=== PATIENT | male | born 2005 | race Caucasian/White ===

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

== ENCOUNTER 2025-03-20 13:11 | Emergency (ER) | payer OTHER, BC, SELFPAY ==
--- NOTE | ~2025-03-20 | XR_ITS ---
EXAMINATION: XR chest 2V DATE: 03/20/2025 14:12 INDICATION: Shortness of breath TECHNIQUE: PA and lateral views of the chest were obtained. COMPARISON: Chest radiograph dated 03/08/2013 and rib radiographs dated 11/20/2021 FINDINGS: The lungs are clear with no focal airspace opacities, pulmonary edema, pleural effusion or pneumothor ax. The cardiomediastinal silhouette is normal. Visualized bones and soft tissues are unremarkable. IMPRESSION: 1. No acute cardiopulmonary disease. Reviewed, dictated and finalized at location A.
[2025-03-20 13:25] VITALS: BP 152/95; PULSE 90; RESP 18; TEMP 36.6; O2SAT 96
--- NOTE | 2025-03-20 13:31 | ECG_ITS ---
Test Date: 2025-03-20 13:47:28 Measurements Intervals [place] Rate: 83 P: 3 CT: 161 QRS: 37 QRSD: 95 T: 16 QT: 348 QTc: 409 Interpretive Statements SINUS RHYTHM ST ELEVATION IN ANTEROLAT/HIGH LAT LEADS CONSISTENT WITH EARLY REPOLARIZATION BORDERLINE ECG No previous ECG available for comparison Electronically Signed On 03-20-2025 14:17:06 CDT by Vishal Cho D.O.
[2025-03-20 13:46] VITALS: BP 157/99; PULSE 88; RESP 18; O2SAT 99
[2025-03-20 13:46] LABS: Basophils Percent Auto 0.4 % (0.2-1.2); Eosinophils Percent Auto 0.3 % (0-4.4); Hemoglobin 17.2 g/dL (14.0-18.0); Immature Granulocyte Absolute 0.03 K/mm3 (0.00-0.031); Immature Granulocyte Percent A 0.3 % (0-0.5); Lymphocytes Absolute Auto 1.69 K/mm3 (0.9-3.2); Lymphocytes Percent Auto 18.9 % (18.3-44.2); Mean Corpuscular HGB Conc 35.1 g/dl (32-36); Mean Corpuscular Hemoglobin 28.5 pg (26-34); Mean Corpuscular Volume 81.3 fl (80-100); Mean Platelet Volume 8.7 fl (7.4-10.4); Monocytes Absolute Auto 0.7 K/mm3 (0.1-0.6); Monocytes Percent Auto 7.8 % (2.6-8.5); Neutrophils Absolute Auto 6.4 K/mm3 (1.3-6.7); Neutrophils Percent Auto 72.3 % (45.5-73.1); Platelet Count Result 339 k/mm3 (150-375); Red Blood Count 6.03 M/mm3 (4.6-6.20); Red Cell Distribution Width 12.2 % (11.5-14.5); White Blood Count 8.9 K/mm3 (4.5-10.0)
--- OUTSIDE RECORDS SUMMARY | 2025-03-20 13:46 | XMS_ITS | Clinical Summary ---
Author Organization [facility] Address [address] [place] [address] Care Team Providers Care Rf Engineer Name Role Phone Jose Paulino MD Unavailable [phone] Source Comments [facility],non-owned Affiliates and Associated Physician Practices is amultiple site organization consisting of ambulatory clinics and hospital sitesin [place] and [place]. This disclosure is being madepursuant to the Care Everywhere program and may not contain all information available regarding this patient. Last updated 18.[facility] Allergies No known active allergies Medications * Be aware that medications may not be up to date on this document. Always verify current medications with the patient. No known medications Active Problems Problem Noted Date Diagnosed Date Perineal pain in male 08/19/2020 Assessment & Plan (08/19/2020 2:58 PM JAVA CONSULTANT): On my exam he is focally tender in the right perineal area with mass or induration. I do not think he has an inguinal hernia. Seems relatively distant from the anus to be overly concerning for something like fistula in ano. No great explanation for pain and no voiding complaints. Offered the following options: 1. 2nd opinion with pediatric surgery 2. Physical therapy consult 3. Repeat scrotal and now perineal ultrasound 4. Observation or combination of above. They will think about options and contact the clinic. Social History Tobacco Use Types Packs/Day Years Used Date Smoking Tobacco: Every Day Smokeless Tobacco: Never Comments:smokes marijuana Alcohol Use Standard Drinks/Week Comments Yes 0 (1 standard drink = 0.6 oz pur e alcohol) once every 2 month Sex and Gender Information Value Date Recorded Sex Assigned at Not on file Legal Sex Male 5:45 AM JAVA CONSULTANT Gender Identity Not on file Sexual Orientation Not on file Last Filed Vital Signs Vital Sign Reading Time Taken Comments Blood Pressure - - Pulse - - Temperature - - Respiratory Rate - - Oxygen Saturation - - Inhaled Oxygen Concentration - - Weight 69.3 kg (152 lb 12.5 oz) 020 11:28 AM JAVA CONSULTANT Height 173.8 cm (5' 8.43) 08/19/2020 1 1:28 AM JAVA CONSULTANT Body Mass Index 22.94 08/19/2020 11:28 AM JAVA CONSULTANT Plan of Treatment Health Maintenance Due Date Last Done Comments HIV SCREENING 2018 HPV VACCINE (1 - Male 3-dose series) 2018 MENINGOCOCCAL (Group B) VACC INE SHARED DECISION-MAKING (1 of 2 - Standard) 2019 HEPATITIS C SCREENING 02/11/2021 DTAP/TDAP/TD VACCINES (1 - Tdap) 2022 HEPATITIS B VACCINE (1 of 3 - 19+ 3-dose series) 2022 COVID-19 VACCINE (1 - 2023-2 5 season) 2024 DEPRESSION SCREENING 10/04/2024 INFLUENZA VACCINE (Season Ended) 2025 ZOSTER VACCINE (1 of 2) 2053 HIB VACCINE Aged Out No longer eligi ble based on patient's age to complete this topic MENINGOCOCCAL GROUPS A/C/Y/W VACCINE Aged Out No longer eligible b ased on patient's age to complete this topic PNEUMOCOCCAL VACCINE Aged Out No long er eligible based on patient's age to [place] [address] [facility] Care Teams Rf Engineer Relationship Specialty Start Date End Date Jose Paulino MD [address] [place] [address] Pediatric Urology 08/19/20
[2025-03-20 13:55] LABS: Alanine Aminotransferase 19 U/L (6-50); Albumin Level 4.8 g/dL (3.5-5.1); Alkaline Phosphatase 136 U/L (38-126); Anion Gap 13 mmol/L (4-12); Aspartate Amino Transferase 28 U/L (17-59); Bilirubin,Total 0.9 mg/dL (0.2-1.3); Blood Urea Nitrogen 9 mg/dL (9-20); Calcium 9.5 mg/dL (8.4-10.2); Carbon Dioxide 20 mmol/L (22-30); Chloride 104 mmol/L (98-107); Estimated CRCL calculation 106 ml/min; Estimated Glomerular Filt Rate > 60; Glucose 120 mg/dL (65-110); Potassium 3.6 mmol/L (3.4-5.0); Sodium 137 mmol/L (137-145); Total Protein 7.9 g/dL (6.3-8.2)
[2025-03-20 14:23] LABS: Influenza A QL RT-PCR Negative (Negative); Influenza B QL RT-PCR Negative (Negative); RSV RNA, RT-PCR Negative (Negative); SARS-CoV-2 RNA PCR Negative (Negative)
[2025-03-20 14:45] VITALS: PULSE 97; RESP 15; O2SAT 95
--- OUTSIDE RECORDS SUMMARY | 2025-03-20 14:49 | XMS_ITS | Clinical Summary ---
Author Organization [facility] Address [address] [place] [address] Care Team Providers Care Baling Machine Tender Name Role Phone Jose Paulino MD Unavailable [phone] Source Comments [facility],non-owned Affiliates and Associated Physician Practices is amultiple site organization consisting of ambulatory clinics and hospital sitesin [place], [place], [place] and [place]. This disclosure is being madepursuant to the Care Everywhere program and may not contain all information available regarding this patient. Last updated 18.[facility] Allergies No known active allergies Medications * Be aware that medications may not be up to date on this document. Always verify current medications with the patient. No known medications Active Problems Problem Noted Date Diagnosed Date Perineal pain in male 08/19/2020 Assessment & Plan (08/19/2020 2:58 PM RESTAURANT EXPEDITOR): On my exam he is focally tender [...] on file Legal Sex Male 5:45 AM RESTAURANT EXPEDITOR Gender Identity Not on file Sexual Orientation Not on file Last Filed Vital Signs Vital Sign Reading Time Taken Comments Blood Pressure - - Pulse - - Temperature - - Respiratory Rate - - Oxygen Saturation - - Inhaled Oxygen Concentration - - Weight 69.3 kg (152 lb 12.5 oz) 020 11:28 AM RESTAURANT EXPEDITOR Height 173.8 cm (5' 8.43) 08/19/2020 1 1:28 AM RESTAURANT EXPEDITOR Body Mass Index 22.94 08/19/2020 11:28 AM RESTAURANT EXPEDITOR Plan of Treatment Health Maintenance Due Date [...] patient's age to complete [place] [address] [facility] Care Teams Baling Machine Tender Relationship Specialty Start Date End Date Jose Paulino MD [address] [place] [address] Pediatric Urology 08/19/20
--- NOTE | 2025-03-20 16:08 | ED_ITS ---
HPI - SOB/Dyspnea General Chief Complaint: Shortness of Breath/Dyspnea Stated Complaint: shortness of breath Time Seen by Provider: 03/20/25 13:24 Source: patient and family Mode of arrival: ambulatory Limitations: no limitations History of Present Illness HPI Narrative: 20-year-old with a history of asthma he is here with complaints of intermittent shortness of breath for past 1 week. He denies any cough. No history of chest pain. Heart however he states that it is pain in the left upper abdomen he denies any fever or chills. MD elicited complaint: shortness of breath Pertinent past history: asthma Timing: intermittent Exacerbating factors: nothing Relieving factors: nothing Known history of: asthma Associated symptoms: denies other symptoms Related Data Allergies Allergy/AdvReac Type Severity Reaction Status Date / Time No Known Allergies Allergy Verified 03/20/25 13:11 Review of Systems 2 Review of Systems: All systems reviewed & are unremarkable except as noted in HPI and below ROS unobtainable: Yes unobtainable due to endotracheal tube Constitutional: Constitutional: Reports no additional constitutional complaints Eyes: Eyes: Reports no additional eye complaints ENT: Reports system reviewed and no additional complaints, except as documented Cardiovascular: Cardiovascular: Reports no additional cardiovascular complaints Respiratory: Respiratory: Reports as per HPI Musculoskeletal: Musculoskeletal: Reports no additional musculoskeletal complaints [facility] Past Medical History Medical History Hernia Surgical History Surgical History No significant past surgical history Family History Family History Father Alive and well Mother Alive and well Grandparent Hypertension Social History Social History Smoking status: Current every day smoker Tobacco type: e-cigarettes/vaping Second hand tobacco smoke exposure: No Alcohol intake: current Substance use: current Substance use type: marijuana Lack of Transportation: No Lack of Food: Never True Current Housing: I Have Housing Concerned About Future Housing: No Difficulty Paying Gas/Electric Bills: No Difficulty Paying for Meds: No Currently Unemployed: No Education: Decline to Answer Difficulty w/ Childcare or Family Care: No Living arrangements: with family Occupation/Education: occupation Gender identity (if verbalized by the patient): Male Exam 2 Narrative: GENERAL: Well-appearing, well-nourished, and in no acute distress. HEAD: Normocephalic, atraumatic. EYES: PERRLA and EOMI. ENT: Nares clear, no rhinorrhea or epistaxis. Mucous membranes moist. NECK: Supple. CHEST: Clear to auscultation. No respiratory distress. HEART: Regular rate and rhythm. No murmur heard. Normal peripheral pulses. ABDOMEN: Soft, nontender, nondistended, normal active bowel sounds. EXTREMITIES: Normal range of motion. No edema. SKIN: Warm, dry, no rash. NEURO: No focal deficits. Alert and oriented x3. PSYCH: Normal mood and affect. Course Course Emergency Course: Informed patient and x-ray findings. He is SpO2 on room air is 100%. Advised him to continue his home medications, follow-up with his primary doctor , Requesting inhaler and medication for anxiety Vital Signs Vital signs: Vital Signs Temperature 36.6 C 03/20/25 13:25 Pulse Rate 90 03/20/25 13:25 Respiratory Rate 18 03/20/25 13:25 Blood Pressure 152/95 H 03/20/25 13:25 Pulse Oximetry 96 03/20/25 13:25 Oxygen Delivery Room Air 03/20/25 13:25 Temperature 36.6 C 03/20/25 13:25 Pulse Rate 97 03/20/25 14:45 Respiratory Rate 15 03/20/25 14:45 Blood Pressure 157/99 H 03/20/25 13:46 Pulse Oximetry 95 03/20/25 14:45 Oxygen Delivery Room Air 03/20/25 13:29 MDM - SOB/Dyspnea Differential Diagnosis Differential diagnosis: Likely acute exacerbation of chronic obstructive airways disease and community acquired pneumonia Medical Records Attestation: I reviewed the patient's medical records. Lab Data Attestation: I reviewed the patient's lab results. 03/20/25 13:40 03/20/25 13:40 Labs: Lab Results 03/20/25 Range/Units 13:40 WBC 8.9 (4.5-10.0) K/mm3 RBC 6.03 (4.6-6.20) M/mm3 Hgb 17.2 (14.0-18.0) g/dL Hct 49.0 (42.0-52.0) % MCV 81.3 (80-100) fl MCH 28.5 (26-34) pg MCHC 35.1 (32-36) g/dl RDW 12.2 (11.5-14.5) % Plt Count 339 (150-375) k/mm3 MPV 8.7 (7.4-10.4) fl Immature Gran % (Auto) 0.3 (0-0.5) % Neut % (Auto) 72.3 (45.5-73.1) % Lymph % (Auto) 18.9 (18.3-44.2) % Loving % (Auto) 7.8 (2.6-8.5) % Eos % (Auto) 0.3 (0-4.4) % Baso % (Auto) 0.4 (0.2-1.2) % Lymph # (Auto) 1.69 (0.9-3.2) K/mm3 Loving # (Auto) 0.7 H (0.1-0.6) K/mm3 Eos # (Auto) 0.0 (0-0.3) K/mm3 Baso # (Auto) 0.0 (0.0-0.1) K/mm3 Abs Immat Gran (auto) 0.03 (0.00-0.031) K/mm3 Absolute Neuts (auto) 6.4 (1.3-6.7) K/mm3 Absolute Nucleated RBC 0.000 (0.0-0.012) K/mm3 Nucleated RBC % 0.0 (0.0-0.2) % Sodium 137 (137-145) mmol/L Potassium 3.6 (3.4-5.0) mmol/L Chloride 104 (98-107) mmol/L Carbon Dioxide 20 L (22-30) mmol/L Anion Gap 13 H (4-12) mmol/L BUN 9 (9-20) mg/dL Creatinine 1.13 (0.7-1.3) mg/dL Estim Creat Clear Calc 106 ml/min Estimated GFR > 60 (59 - ) Glucose 120 H (65-110) mg/dL Calcium 9.5 (8.4-10.2) mg/dL Total Bilirubin 0.9 (0.2-1.3) mg/dL AST 28 (17-59) U/L ALT 19 (6-50) U/L Alkaline Phosphatase 136 H (38-126) U/L Total Protein 7.9 (6.3-8.2) g/dL Albumin 4.8 (3.5-5.1) g/dL Influenza A (RT-PCR) Negative (Negative) Influenza B (RT-PCR) Negative (Negative) RSV (RT-PCR) Negative (Negative) SARS-CoV-2 RNA (RT-PCR) Negative (Negative) Imaging Data Radiologist's impression: ITS Impressions Chest X-Ray 03/20/25 14:16 IMPRESSION: 1. No acute cardiopulmonary disease. ECG Data EKG #1: ECG completion date: 03/20/25 ECG completion time: 13:47 EKG Interpretation: normal rate (83), sinus rhythm, no ST changes, normal QRS and normal QT Discharge Plan Discharge Clinical Impression: SOB (shortness of breath), Anxiety Patient Disposition: Home Condition: Stable Instructions: Anxiety (ED), Shortness of Breath (ED) Patient Language: Syriac Prescriptions: New albuterol sulfate 90 mcg/actuation HFA aerosol inhaler 2 inh inhalation Q8H PRN (Reason: shortness of breath or wheezing) Qty: 8.5 0RF hydroxyzine HCl 10 mg tablet 10 mg PO TID PRN (Reason: anxiety) Qty: 20 0RF No Action albuterol sulfate 90 mcg/actuation HFA aerosol inhaler 2 puff inhalation Q4-6H PRN (Reason: shortness of breath or wheezing) Qty: 8.5 0RF sertraline 50 mg tablet 50 mg PO DAILY Qty: 90 1RF Follow-up/Referrals: Samy Cornelius APRN [Primary Care Provider] - Time of Disposition: 16:13
[2025-03-20 16:32] VITALS: BP 150/72; PULSE 80; RESP 16; TEMP 36.6; O2SAT 98
== END 2025-03-20 16:34 | disposition home or self-care (01) ==
PROVIDERS: Emergency Provider Family Medicine; PCP Nurse Practitioner
DX: R06.02 Shortness of breath (principal); F41.9 Anxiety disorder, unspecified; Z20.822 Contact with and (suspected) exposure to COVID-19; J45.909 Unspecified asthma, uncomplicated; F17.290 Nicotine dependence, other tobacco product, uncomplicated
CPT/HCPCS: 36415; 71046; 80053; 85025; 87637; 93005; 99284

== ENCOUNTER 2025-07-15 10:52 | Emergency (ER) | payer OTHER, BC, SELFPAY ==
[2025-07-15 10:59] VITALS: BP 138/100; PULSE 61; RESP 20; TEMP 36.8; O2SAT 100
--- NOTE | 2025-07-15 11:52 | ED_ITS ---
HPI - Anxiety General Chief Complaint: Anxiety Stated Complaint: loss of appetite/chest tightness Time Seen by Provider: 07/15/25 10:54 Source: patient Mode of arrival: ambulatory Limitations: no limitations History of Present Illness HPI narrative: Patient is a 20-year-old male who presents with loss of appetite, stomach ache, nausea, vomiting, diarrhea and high levels of anxiety for 5 days. Patient lives with grandmother and states that every time she goes on vacation or he goes on vacation he had severe separation anxiety and has the symptoms. Patient has been taking hydroxyzine that he was previously prescribed once today and is not helping. Denies any fevers, upper respiratory symptoms. Patient has never seen a psychiatrist or been in counseling. Related Data Home Medications ?Medication ?Instructions ?Recorded ?Confirmed ?Last Taken ?Type esomeprazole magnesium 20 mg mg 07/15/25 Unknown Hist ory capsule,delayed release Allergies Allergy/AdvReac Type Severity Reaction Status Date / Time No Known Allergies Allergy Verified 07/15/25 11:17 Review of Systems Review of Systems: All systems reviewed & are unremarkable except as noted in HPI and below Constitutional: Constitutional: Denies body ache(s), Denies chills, Denies fatigue, Denies fever(s), Denies headache(s), Denies malaise and Denies weakness Eyes: Eyes: Denies blurry vision, Denies irritation and Denies loss of vision ENT: Denies otalgia, Denies headache(s), Denies nasal discharge, Denies sinus pain and Denies sore throat Cardiovascular: Cardiovascular: Denies chest pain, Denies irregular heart rhythm and Denies dyspnea Respiratory: Respiratory: Denies dyspnea Gastrointestinal: Gastrointestinal: Denies abdominal pain, Denies melena, Denies hematochezia, Denies diarrhea, Reports nausea and Reports vomiting Musculoskeletal: Musculoskeletal: Denies back pain, Denies myalgias and Denies arthralgias Integumentary/Breasts: Skin/Breast: Denies pruritus and Denies rash Neurologic: Denies headache(s), Denies loss of vision and Denies weakness Psychiatric: Psychiatric: Reports no additional psychiatric complaints and Reports anxiety Endocrine: Endocrine: Denies fatigue PMFSH Past Medical History Medical History Hernia Surgical History Surgical History No significant past surgical history Family History Family History Father Alive and well Mother Alive and well Grandparent Hypertension Social History Social History Smoking status: Current every day smoker Tobacco type: e-cigarettes/vaping Second hand tobacco smoke exposure: No Alcohol intake: current Substance use: current Substance use type: does not use Lack of Transportation: No Lack of Food: Never True Current Housing: I Have Housing Concerned About Future Housing: No Difficulty Paying Gas/Electric Bills: No Difficulty Paying for Meds: No Currently Unemployed: No Education: Decline to Answer Difficulty w/ Childcare or Family Care: No Living arrangements: with family Occupation/Education: occupation Gender identity (if verbalized by the patient): Male Comments At time of signature, agree with nursing past medical, surgical, social and family history. There is no relevant family history pertinent to the presenting complaint. Exam Const: General: cooperative, healthy appearing, comfortable, no acute distress and well nourished Nutritional Appearance: well nourished Orientation/consciousness: patient oriented x3 Limitations: no limitations HENMT: Head: normal to inspection, normocephalic and atraumatic Ears: hearing grossly normal bilaterally and external ears normal Face/Nose/Sinus: Normal external nose present, normal facial exam and face symmetric Face and sinus: normal facial exam and face symmetric Mouth: Yes lip normal Eyes: General: appearance normal, both eyes and all related structures Alignment and Position: alignment normal and position normal Periorbital: periorbital findings normal Eyelids: eyelids normal Pupils: Equal, round and reactive pupils present EOM: EOMs intact bilaterally Neck: Neck: normal visual inspection, full ROM and supple Chest: Chest palpation & inspection: normal inspection of the chest Resp: Effort & Inspection: normal respiratory effort and able to speak in complete sentences Auscultation: clear to auscultation bilaterally Cardio: Rate: regular rate Rhythm: regular rhythm Heart sounds: S1 normal heart sound present and S2 normal heart sound present GI: Inspection: normal to inspection Skin: General skin exam: normal color and no rashes or lesions noted Neuro: General: patient oriented x3 and moves all extremities Cranial nerves: Yes Equal, round and reactive pupils present Speech: normal speech Gait exam (Neuro): Normal gait present Extrem: General: normal to inspection, full ROM and no edema Psych: Appearance: grossly normal and well kempt Mental Status: mental status grossly normal Speech and movement: Normal speech and movement present Affect: normal affect Attitude: cooperative Thought process: Normal thought process present Course Course Emergency Course: Patient is aware of diagnosis, understands and agrees to treatment plan. Anticipatory guidance given. Patient agrees to follow-up as directed and is aware of reasons to seek care at the emergency department. Portions of this record may have been created with voice recognition software Level of Care: Express Care Visit Vital Signs Vital signs: Vital Signs Temperature 36.8 C 07/15/25 10:59 Pulse Rate 61 07/15/25 10:59 Respiratory Rate 20 07/15/25 10:59 Blood Pressure 138/100 H 07/15/25 10:59 Pulse Oximetry 100 07/15/25 10:59 Oxygen Delivery Room Air 07/15/25 10:59 Temperature 36.8 C 07/15/25 10:59 Pulse Rate 88 07/15/25 12:09 Respiratory Rate 18 07/15/25 12:09 Blood Pressure 132/86 07/15/25 12:09 Pulse Oximetry 98 07/15/25 12:09 Oxygen Delivery Room Air 07/15/25 12:09 Reviewed MDM - Anxiety MDM Narrative Medical decision making narrative: Patient has significant anxiety but has never sought treatment. Patient is willing to except resources and consider psychiatric help. Will prescribe more hydroxy is seen along with Zofran to help with anxiety and nausea so patient can eat. Patient was seen in ER 03/20 this year for similar episode. Patient has no thoughts of self-harm or harming others. Pt well hydrated appearing, in no respiratory distress, hemodynamically stable. Recommend supportive care. The patient is stable at time of discharge the clinical impression was discussed and the patient was given the opportunity to ask questions, which were addressed as completely as possible given the information available at present. Anticipatory guidance and return to care precautions were discussed and the importance of primary care follow-up was stressed and encouraged. The patient voiced understanding of the plan, indications to return, and the need for follow-up. Exam findings show no acute concerns or changes Patient is appropriate for outpatient treatment and follow-up. Differential Diagnosis Differential diagnosis: Likely hyperventilation, panic disorder and acute anxiety Medical Records Attestation: I reviewed the patient's medical records. Discharge Plan Discharge Clinical Impression: Anxiety Patient Disposition: Home Condition: Stable Instructions: Anxiety (ED) Additional Instructions: How do you know when anxiety is a medical problem? Everyone feels anxious or nervous once in a while. That is normal. But being extremely anxious or worried on most days for 6 months or longer is not normal. This is called generalized anxiety disorder. The disorder can make it hard to do everyday tasks. ? Generalized anxiety disorder is just 1 anxiety disorder. There are others, such as panic disorder and phobias. This article focuses on generalized anxiety disorder. ? What are the symptoms of extreme or severe anxiety? People with extreme or severe anxiety feel very worried or on edge much of the time. They can have trouble sleeping or forget things. Plus, they can have physical symptoms. For instance, people with severe anxiety often feel very tired and have tense muscles. Some get stomach aches or feel chest tightness. ? Should I see a doctor or nurse? See your doctor or nurse if you: 1.Are more anxious than you think is normal 2.Get overly anxious about things that other people handle more easily ? Your doctor or nurse can ask you questions that are designed to measure a person's anxiety level. If you do have a problem with anxiety, there are different treatments that can help. ? Is there anything I can do on my own to feel better? Yes. Exercise can help many people feel less anxious. It's also a good idea to cut down on or stop drinking coffee and other sources of caffeine. Caffeine can make anxiety worse. ? How is anxiety treated? Treatments include: ? 1.Psychotherapy - Psychotherapy involves meeting with a mental health counselor to talk about your feelings, relationships, and worries. Therapy can help you find new ways of thinking about your situation so that you feel less anxious. In therapy, you might also learn new skills to reduce anxiety. ? 2.Medicines - Medicines used to treat depression can relieve anxiety, too, even in people who are not depressed. Your doctor or nurse will decide which medicines are best for your situation. ? Some people have psychotherapy and take medicines at the same time. ? There is no reason to feel embarrassed about getting treatment for anxiety. Anxiety is a common problem. It affects all kinds of people. ? Keep in mind that it might take a little while to find the right treatment. People respond in different ways to medicines and therapy, so you might need to try a few approaches before you find the 1 that helps you most. The jacobs is to not give up and to let your doctor or nurse know how you feel along the way. Are there herbal treatments I can take? Makers of herbal drugs sometimes claim that their products relieve anxiety. For example, herbs called kava kava and valerian are sold as treatments for anxiety. But there is no evidence that these treatments work. Plus, kava kava has been linked with serious liver damage. It might not be safe. What will my life be like? People with anxiety disorders often have to deal with some anxiety for the rest of their life. For some, anxiety comes and goes, but gets bad during times of stress. The good news is, many people find effective treatments or ways to deal with their anxiety. Patient Language: [place] Prescriptions: New hydroxyzine HCl 25 mg tablet 25 mg PO TID PRN (Reason: anxiety) Qty: 20 0RF ondansetron 4 mg tablet,disintegrating 4 mg PO Q6-8H PRN (Reason: nausea and vomiting) Qty: 15 0RF No Action esomeprazole magnesium 20 mg capsule,delayed release(DR/EC) albuterol sulfate 90 mcg/actuation HFA aerosol inhaler 2 puff inhalation Q4-6H PRN (Reason: shortness of breath or wheezing) Qty: 8.5 0RF sertraline 50 mg tablet 50 mg PO DAILY Qty: 90 1RF albuterol sulfate 90 mcg/actuation HFA aerosol inhaler 2 inh inhalation Q8H PRN (Reason: shortness of breath or wheezing) Qty: 8.5 0RF hydroxyzine HCl 10 mg tablet 10 mg PO TID PRN (Reason: anxiety) Qty: 20 0RF Follow-up/Referrals: Norberto Padilla MD [Physician, Family Practice] - 3 Days Referral Note: Establish care Time of Disposition: 12:02
[2025-07-15 12:09] VITALS: BP 132/86; PULSE 88; RESP 18; O2SAT 98
== END 2025-07-15 12:12 | disposition home or self-care (01) ==
PROVIDERS: Emergency Provider Nurse Practitioner Family
DX: F41.9 Anxiety disorder, unspecified (principal); F17.290 Nicotine dependence, other tobacco product, uncomplicated
CPT/HCPCS: 99213; G0463